=== PATIENT | female | born 1945 | race Caucasian/White ===

== ENCOUNTER 2019-07-29 16:52 | Inpatient (IN) | payer OTHER, MEDICARE ==
[~2019-07-29] VITALS: Ht 162.6 cm; Wt 56.7 kg
[2019-07-29 17:00] VITALS: BP_SYST 141
[2019-07-29] MEDS ORDERED: ONDANSETRON HCL 4 MG/2 ML VIAL IVP ONE (17:45)
[2019-07-29] MEDS ORDERED: NS 500 ML IV ONE (17:45)
[2019-07-29] MEDS ORDERED: MORPHINE 2 MG/ML INJ. SYRINGE IVP ONE (17:45)
[2019-07-29 18:01] LABS: BASOPHILS % (AUTO) 0.4 % (0.0-2.0); EOSINOPHILS # (AUTO) 0.1 K/uL (0.0-0.4); EOSINOPHILS % (AUTO) 0.8 % (0.0-4.0); HEMATOCRIT 43.1 % (36-48); HEMOGLOBIN 14.5 g/dL (12.0-16.0); LYMPHOCYTES # (AUTO) 1.4 K/uL (1.0-5.5); LYMPHOCYTES % (AUTO) 17.4 % (20.5-51.5); MEAN CORPUSCULAR HEMOGLOBIN 31 pg (27-31); MEAN CORPUSCULAR HGB CONC 34 % (32-36); MEAN CORPUSCULAR VOLUME 91 fL (79.0-98.0); MONOCYTES # (AUTO) 0.8 K/uL (0.0-1.0); MONOCYTES % (AUTO) 9.6 % (1.7-9.3); NEUTROPHILS # (AUTO) 5.7 K/uL (1.8-7.7); NEUTROPHILS % (AUTO) 71.8 % (40.0-70.0); PLATELET COUNT (AUTO) 226 K/uL (130-430); RED BLOOD CELL COUNT(AUTO) 4.71 MIL/uL (4.2-6.2); RED CELL DISTRIBUTION WIDTH 13.2 % (9.0-15.0)
[2019-07-29 18:30] LABS: BILIRUBIN,URINE 1+ (NEGATIVE); COLOR,URINE YELLOW (YELLOW); GLUCOSE,URINE NEGATIVE (NEGATIVE); KETONES,URINE 3+ (NEGATIVE); LEUKOCYTE ESTERASE ,URINE TRACE (NEGATIVE); NITRITE, URINE NEGATIVE (NEGATIVE); PROTEIN URINE TRACE (NEGATIVE)
[2019-07-29 18:30] LABS: ANION GAP 15 (5-15); CALCIUM 8.8 mg/dL (8.4-11.0); CHLORIDE 99 mmol/L (98-107); CREATININE 0.78 mg/dL (0.55-1.30); GLUCOSE 99 mg/dL (70-99); POTASSIUM 3.7 mmol/L (3.5-5.1); SODIUM SERUM 136 mmol/L (136-145); UREA NITROGEN, BLOOD 20 mg/dL (8-21)
[2019-07-29 18:33] LABS: PROTHROMBIN TIME 10.4 SECS (9.5-12.5)
[2019-07-29 18:35] LABS: BLOOD, URINE TRACE (NEGATIVE); CLARITY/URINE SLIGHTLY HAZY (CLEAR)
[2019-07-29 18:36] LABS: ALANINE AMINOTRANSFERASE 33 U/L (12-78); ALBUMIN 3.7 g/dL (3.4-4.8); ASPARTATE AMINOTRANSFERASE 30 U/L (10-37); TOTAL BILIRUBIN 0.9 mg/dL (0.0-1.0)
[2019-07-29 18:56] LABS: BACTERIA,URINE FEW /HPF (None Seen); FINE GRANULAR CASTS,URINE 0-10 /LPF (None Seen); MUCUS,URINE 2+ /LPF (None Seen)
[2019-07-29] MEDS ORDERED: cefTRIAXone 1 GM IVPB PREMIX 50 ML IV ONE (19:15)
[2019-07-29] MEDS: D5/0.45 NS 1,000 ML IV SCH (20:26)
[2019-07-29] MEDS ORDERED: HYDROcodone/ACETAMIN 5-325 MG TAB (NORCO/ VICODIN) PO PRN ×2 (22:00→22:30)
[2019-07-29] MEDS ORDERED: HYDROcodone/ACETAMIN 10-325 MG TAB PO PRN ×2 (22:00→22:30)
[2019-07-29] MEDS ORDERED: ACETAMINOPHEN 325 MG TABLET PO PRN ×2 (22:00→22:30)
[2019-07-29] MEDS ORDERED: LIP10 PO (22:12)
[2019-07-29] MEDS ORDERED: D5/0.45 NS 1,000 ML IV SCH (22:20)
[2019-07-29] MEDS ORDERED: ONDANSETRON HCL 4 MG/2 ML VIAL IVP PRN (22:30)
[2019-07-29] MEDS ORDERED: LORazepam 2 MG/ML VIAL IVP PRN (22:30)
[2019-07-29 23:00] VITALS: BP_SYST 150
[2019-07-30] VITALS: BP_SYST 145
[2019-07-30 07:21] LABS: BASOPHILS % (AUTO) 0.7 % (0.0-2.0); EOSINOPHILS # (AUTO) 0.1 K/uL (0.0-0.4); EOSINOPHILS % (AUTO) 1.9 % (0.0-4.0); HEMATOCRIT 38.2 % (36-48); HEMOGLOBIN 12.7 g/dL (12.0-16.0); LYMPHOCYTES # (AUTO) 1.1 K/uL (1.0-5.5); LYMPHOCYTES % (AUTO) 18.3 % (20.5-51.5); MEAN CORPUSCULAR HEMOGLOBIN 31 pg (27-31); MEAN CORPUSCULAR HGB CONC 33 % (32-36); MEAN CORPUSCULAR VOLUME 92 fL (79.0-98.0); MONOCYTES # (AUTO) 0.8 K/uL (0.0-1.0); MONOCYTES % (AUTO) 12.4 % (1.7-9.3); NEUTROPHILS # (AUTO) 4.2 K/uL (1.8-7.7); NEUTROPHILS % (AUTO) 66.7 % (40.0-70.0); PLATELET COUNT (AUTO) 189 K/uL (130-430); RED BLOOD CELL COUNT(AUTO) 4.15 MIL/uL (4.2-6.2); RED CELL DISTRIBUTION WIDTH 13.1 % (9.0-15.0); WHITE BLOOD COUNT (AUTO) 6.2 K/uL (4.8-10.8)
[2019-07-30 07:47] LABS: ANION GAP 8 (5-15); CALCIUM 7.8 mg/dL (8.4-11.0); CHLORIDE 103 mmol/L (98-107); CREATININE 0.62 mg/dL (0.55-1.30); GLUCOSE 137 mg/dL (70-99); SODIUM SERUM 136 mmol/L (136-145); UREA NITROGEN, BLOOD 14 mg/dL (8-21)
[2019-07-30 08:00] VITALS: BP_SYST 128
[2019-07-30] MEDS: MORPHINE 2 MG/ML INJ. SYRINGE IVP PRN (08:35)
[2019-07-30] MEDS: D5/0.45 NS 1,000 ML IV SCH ×3 (08:44→20:28)
[2019-07-30] MEDS: metroNIDAZOLE 500 mg/NS 100 ML IV SCH ×2 (09:17→20:28)
[2019-07-30 12:00] VITALS: BP_SYST 132
[2019-07-30 16:00] VITALS: BP_SYST 130
[2019-07-30 20:23] VITALS: BP_SYST 132
[2019-07-30] MEDS: cefTRIAXone 1 GM IVPB PREMIX 50 ML IV SCH (20:28)
[2019-07-30] MEDS: ATORVASTATIN 10 MG TABLET PO SCH (20:28)
[2019-07-31 00:21] VITALS: BP_SYST 134
[2019-07-31] MEDS: MORPHINE 2 MG/ML INJ. SYRINGE IVP PRN (00:54)
[2019-07-31 07:45] LABS: BASOPHILS % (AUTO) 0.3 % (0.0-2.0); EOSINOPHILS # (AUTO) 0.2 K/uL (0.0-0.4); EOSINOPHILS % (AUTO) 2.7 % (0.0-4.0); HEMATOCRIT 35.9 % (36-48); HEMOGLOBIN 11.8 g/dL (12.0-16.0); LYMPHOCYTES # (AUTO) 1.2 K/uL (1.0-5.5); LYMPHOCYTES % (AUTO) 22.4 % (20.5-51.5); MEAN CORPUSCULAR HEMOGLOBIN 30 pg (27-31); MEAN CORPUSCULAR HGB CONC 33 % (32-36); MEAN CORPUSCULAR VOLUME 92 fL (79.0-98.0); MONOCYTES # (AUTO) 0.6 K/uL (0.0-1.0); MONOCYTES % (AUTO) 11.4 % (1.7-9.3); NEUTROPHILS # (AUTO) 3.5 K/uL (1.8-7.7); NEUTROPHILS % (AUTO) 63.2 % (40.0-70.0); PLATELET COUNT (AUTO) 181 K/uL (130-430); RED BLOOD CELL COUNT(AUTO) 3.89 MIL/uL (4.2-6.2); RED CELL DISTRIBUTION WIDTH 12.8 % (9.0-15.0); WHITE BLOOD COUNT (AUTO) 5.5 K/uL (4.8-10.8)
[2019-07-31 08:03] VITALS: BP_SYST 130
[2019-07-31 08:08] LABS: ANION GAP 3 (5-15); C-REACTIVE PROTEIN QUANT 1.2 mg/dL (0-0.5); CALCIUM 7.9 mg/dL (8.4-11.0); CHLORIDE 103 mmol/L (98-107); CREATININE 0.61 mg/dL (0.55-1.30); GLUCOSE 132 mg/dL (70-99); POTASSIUM 3.7 mmol/L (3.5-5.1); SODIUM SERUM 133 mmol/L (136-145); UREA NITROGEN, BLOOD 6 mg/dL (8-21)
[2019-07-31] MEDS: metroNIDAZOLE 500 mg/NS 100 ML IV SCH ×2 (08:38→21:48)
[2019-07-31] MEDS: PANTOPRAZOLE SODIUM 40 MG/VIAL (PROTONIX) IVP SCH ×2 (08:38→21:48)
[2019-07-31] MEDS: D5/0.45 NS 1,000 ML IV SCH ×2 (08:51→19:59)
[2019-07-31 10:27] LABS: ERYTHROCYTE SEDIMENTATION RATE 11 MM/HR (0-20)
[2019-07-31 12:27] VITALS: BP_SYST 122
[2019-07-31 16:45] VITALS: BP_SYST 121
[2019-07-31] MEDS: cefTRIAXone 1 GM IVPB PREMIX 50 ML IV SCH (19:53)
[2019-07-31 20:00] VITALS: BP_SYST 124
[2019-07-31] MEDS: ATORVASTATIN 10 MG TABLET PO SCH (21:49)
[2019-08-01] VITALS: BP_SYST 122
[2019-08-01 08:05] VITALS: BP_SYST 122
[2019-08-01] MEDS: PANTOPRAZOLE SODIUM 40 MG/VIAL (PROTONIX) IVP SCH (09:00)
[2019-08-01 10:18] VITALS: BP_SYST 132
== END 2019-08-01 11:50 | disposition home or self-care (01) | DRG 690 ==
LOC: SED 16:52 → SMU 19:11
PROVIDERS: ADMIT Preventive Medicine Preventive Medicine/Occupational Environmental Medicine; ATTEND Preventive Medicine Preventive Medicine/Occupational Environmental Medicine
DX: N39.0 Urinary tract infection, site not specified (principal); K52.9 Noninfective gastroenteritis and colitis, unspecified; K57.90 Diverticulosis of intestine, part unspecified, without perforation or abscess without bleeding; E78.00 Pure hypercholesterolemia, unspecified; E78.5 Hyperlipidemia, unspecified; K59.00 Constipation, unspecified; E86.0 Dehydration; Z87.440 Personal history of urinary (tract) infections; Z79.899 Other long term (current) drug therapy; Z88.1 Allergy status to other antibiotic agents
CPT/HCPCS: 36415; 71045; 76700-TC; 80048; 80053; 81000-TC; 83605; 83690-TC; 84484; 85025; 85610-TC; 85651-TC; 85730-TC; 86140; 87040-TC; 87086; 87186-TC; 93005; 96361; 96365; 96375; 99285; C9113; J0696; J2270; J2405; J3490